=== PATIENT | female | born 1985 | race Two or more races ===

== ENCOUNTER 2017-07-01 09:20 | Emergency (ER) | payer MEDICAID ==
[~2017-07-01] VITALS: Ht 170.2 cm; Wt 70.8 kg
[2017-07-01 09:25] VITALS: BP 118/60
[2017-07-01] MEDS ORDERED: KETOROLAC TROMETH 60MG/2ML VIAL IM ONE (09:45)
== END 2017-07-01 10:47 | disposition home or self-care (01) ==
LOC: ER 09:20
DX: R51 Headache (principal); R20.0 Anesthesia of skin; Y08.89XA Assault by other specified means, initial encounter; Y93.89 Activity, other specified; Y99.8 Other external cause status; Y92.89 Other specified places as the place of occurrence of the external cause
CPT/HCPCS: 70450; 96372; 99284; J1885